=== PATIENT | female | born 2000 | race Caucasian/White ===

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

== ENCOUNTER → 2021-04-14 | Outpatient (CLI) | payer BC ==
--- NOTE | 2021-04-14 19:34 | SFUN ---
SLEEP CENTER FOLLOW UP NOTE DATE OF SERVICE: 04/14/2021 HISTORY OF PRESENT ILLNESS: This 20-year-old girl has been followed in the sleep Center for discussion of results of the sleep studies and following plan. Previously, patient had home sleep apnea test which showed no significant respiratory abnormalities. Because she continues to have significant symptoms of excessive daytime sleepiness with [place] Sleepiness Scale, we proceeded with polysomnogram and multiple sleep latency test. I discussed results of sleep studies with patient in detail. Polysomnogram again did not show any significant abnormalities of respirations. Apnea-hypopnea index of 0.5, lowest oxygen level 80.5. No periodic limb movements. Normal sleep efficiency 90.8%. Multiple sleep latency test done on the following day consisted from 5 naps. Latencies are 11.4 minutes, 14.5 minutes, 2.7 minutes, 8.5 minutes, 15.1 minute. Subsequently, patient fell asleep on all naps, but mean sleep latency is 10.4 which is not very short. No sleep onset REM periods have been documented. Patient continued to feel sleepiness. Today her [place] Sleepiness Scale 17. She usually sleeps late about 3:00 am until noon time because she is working in the evening. This is the time when she is more productive and she is able to work. MEDICATIONS: None. PHYSICAL EXAMINATION: GENERAL: Patient in no distress. BP 113/61, HR 80, RR 15, height 5 feet 8 inches, weight 143.2, body mass index 21.7, temperature 97.1, oxygen saturation 97%. HEENT: PERRLA, EOMI, evaluation of oropharynx showed tongue protrudes midline. NECK: Supple, no JVD. Thyroid is not palpable. LUNGS: Clear to percussion and to auscultation. Good air exchange. No wheezing or rhonchi. HEART: S1, S2 regular. No murmurs, gallops, or rubs. ABDOMEN: Soft and nontender. Bowel sounds are present. No organomegaly appreciated. EXTREMITIES: No clubbing or cyanosis. BIOLOGICAL LAB TECHNICIAN: Awake, alert, and oriented X3. Cranial nerves 2 to 7 intact. There is no fasciculation or atrophy. noted. No focal deficits observed. IMPRESSION: 1. No significant respiratory abnormalities by results of home sleep apnea test and polysomnogram. 2. Patient continues to feel significant sleepiness. [place] Sleepiness Scale 17. Results of multiple sleep latency test borderline, not sufficient for diagnosis of narcolepsy, but indicates sleepiness because patient fell asleep on all naps. 3. The patient usually works in the evening and night hours. 4. Sleep delay syndrome. PLAN: 1. Sleep hygiene regular time in bed for at least 8-9 hours per night. 2. Precautions related to driving. No driving if feeling sleepiness. 3. As much as possible bright light exposure in the morning. The patient may use sunlight or light machine. 4. Prescription for modafinil 200 mg in the morning to prevent any symptoms of excessive daytime sleepiness. 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 5. I discussed with the patient in the modafinil may be contraindicated if she will become . 6. Follow-up visit in 3-4 months or earlier if she has any problems. 7. I spent with the patient and the chart work more than 30 minute. Sincerely, Venkata Hayward MD, PhD, FAASM Diplomat of [place] [employer] [place] [employer] Pairer of [facility] [place] MMODL / KODAKN: [id number] /
== END ==
LOC: SLEEP 14:06
PROVIDERS: ATTEND Internal Medicine
DX: G47.8 Other sleep disorders (principal)